=== PATIENT | male | born 1965 | race African-American/Black ===

== ENCOUNTER 2023-10-14 00:39 | Emergency (ER) | payer OTHER ==
[2023-10-14] MEDS ORDERED: Ibuprofen 800 MG TAB ONE (01:53)
== END 2023-10-14 01:59 | disposition home or self-care (01) ==
LOC: ERS 00:39
DX: S60.946A Unspecified superficial injury of right little finger, initial encounter (principal); S60.942A Unspecified superficial injury of right middle finger, initial encounter; S60.944A Unspecified superficial injury of right ring finger, initial encounter; I10 Essential (primary) hypertension; F17.210 Nicotine dependence, cigarettes, uncomplicated; W26.8XXA Contact with other sharp object(s), not elsewhere classified, initial encounter; Y93.E5 Activity, floor mopping and cleaning